=== PATIENT | female | born 1985 | race Caucasian/White ===

== ENCOUNTER 2022-06-05 11:57 | Emergency (ER) | payer OTHER ==
--- OUTSIDE RECORDS SUMMARY | 2022-06-05 12:02 | XMS REPORT | Continuity of Care Document ---
:1985 Author Organization [facility] t Address [address] [place] [address] Care Team Providers Name Role Phone LISY BLACKMON JR Primary Care Physician Unavailable CYRIL BROUSSARD Attending Clinician Unavailable TRAV GUTIERREZ Attending Clinician Unavailable Malvin JEWEL BEARING POLISHERTrav De Leon Attending Clinician Doctor Unassigned, Aripeka Attending Clinician Unavailable WESLEY BOYD Attending Clinician Unavailable Della Marquis Attending Clinician DELLA GÓMEZ Attending Clinician Unavailable KARINA DENNEY Attending Clinician Unavailable Payers Payer Name Policy Type Policy Number Effective Date Expiration Date [facility] [id number] PPO 00:00:00 [facility] [id number] 2014 00:00:00 Problems Condition Condition Condition Status Onset Resolution Last Treating Co mments Source Name Details Category Date Date Treatment Clinician Date Pyelonephr Pyelonephr Disease Active U nivers itis itis 07-12 ity of 00:00: [address] Acute Acute Disease Active Univers post-opera post-opera 9- it y of tive pain tive pain 00:00: [address] Allergies, Adverse Reactions, Alerts Allergy Allergy Status Severity Reaction(s) Onset Inactive Treating Comm ents Source Name Type Date Date Clinician Duloxeti Propensi Active Other - See Hallucin a Univers ne ty to comments 11-13 tions ity of adverse 00:00: [place] reaction 00 Medical s Branch DULOXETI DRUG Active High Other-Cmnt Univ ers NE INGREDI 11-13 ity of 00:00: [place] 00 Medical Branch Morphine Propensi Active Nausea Univer s ty to and/or 06-14 ity of adverse Vomiting 00:00: [place] reaction 00 Medical s to Branch drug Predniso Propensi Active Shortness of Univers ne ty to Breath 06-14 ity of adverse 00:00: [place] reaction Medical s to Branch drug PREDNISO DRUG Active High SOB Univers NE INGREDI 06-14 ity of 00:00: [place] 00 Medical Branch MORPHINE DRUG Active Med N/V Univers INGREDI 06-14 ity of 00:00: [place] 00 Medical Branch Social History Social Habit Start Date Stop Date Quantity Comments Source History SDOH University o f Alcohol Frequency [facility] edical Branch History SDOH University o f Alcohol Std [place] Medical Drinks Branch History SDNY University o f Alcohol Binge [place] Medic al Branch Exposure to 2022-04-16 2022-04-26 Not sure University SARS-CoV-2 00:00:00 11:31:00 [facility] (event) [place] Alcohol intake 2022-04-26 2022-04-26 Current drinker Unive rsity of 00:00:00 00:00:00 of alcohol [facility] (finding) [place] Tobacco use and 2015-06-14 2015-06-14 Smokeless tobacco Un iversity of exposure 00:00:00 00:00:00 non-user [facility] Alcohol Comment 2015-06-14 2015-06-14 Occasional Universit y of 00:00:00 00:00:00 Drinker [facility] Sex [birth year] Universit y of 00:00:00 00:00:00 [facility] Smoking Status Start Date Stop Date Source Never smoked tobacco [facility] Medications Ordered Filled Start Stop Current Ordering Indication Dosage Frequency Signature Comments Components Source Medication Medication Date Date Medication? Clinician (SIG) Name Name cefdinir 2021- Yes [id number] 600mg Take 2 U nivers 300 mg 04-26 07-25 capsules ity of capsule 00:00: 04:59 by mouth [place] 00 :00 in the Medical morning Branch for 10 days. cephALEXin 2020- No [id number] 500mg Take 1 Univers (KEFLEX) 06-28- capsule by ity of 500 mg 00:00: 04:59 mouth 2 [place] capsule 00 :00 (two) Medical times Branch daily for 10 days. COSENTYX Yes Univers PEN 150 9-08 ity of mg/mL SC 00:00: [place] injection Medical Branch COSENTYX Yes Univers PEN 150 9-08 ity of mg/mL SC 00:00: [place] injection Medical Branch COSENTYX Yes Univers PEN 150 9-08 ity of mg/mL SC 00:00: [place] injection 00 Medical Branch COSENTYX Yes Univers PEN 150 9-08 ity of mg/mL SC 00:00: [place] injection 00 Medical Branch COSENTYX Yes Univers PEN 150 9-08 ity of mg/mL SC 00:00: [place] injection 00 Medical Branch AUROVELA 24 Yes Univer s FE 1 mg-20 9-02 ity of mcg (24)/75 00:00: [place] mg (4) per 00 Medical tablet Branch AUROVEAL 24 Yes Univer s FE 1 mg-20 9-02 ity of mcg (24)/75 00:00: [place] mg (4) per 00 Medical tablet Branch AUROVEAL 24 Yes Racqueler s FE 1 mg-20 9-02 ity of mcg (24)/75 00:00: [place] mg (4) per 00 Medical tablet Branch AUROVELA 24 Yes Univer s FE 1 mg-20 9-02 ity of mcg (24)/75 00:00: [place] mg (4) per 00 Medical tablet Branch AUROVELA 24 Yes Univer s FE 1 mg-20 9-02 ity of mcg (24)/75 00:00: [place] mg (4) per 00 Medical tablet Branch atomoxetine Yes Racqu[place] s 18 mg 8-21 ity of capsule 00:00: [place] 00 Medical Branch atomoxetine 2021-0 Yes Univer s 18 mg 8-21 ity of capsule 00:00: [place] [facility] atomoxetine 2020-0 Yes Univer s 18 mg 8-21 ity of capsule 00:00: [place] [facility] atomoxetine 2020-0 Yes Univer s 18 mg 8-21 ity of capsule 00:00: [place] [address] Medical Branch atomoxetine 2020-0 Yes Univer s 18 mg 8-21 ity of capsule 00:00: [place] [facility] SERTraline 2020-0 Yes Univers 50 mg 8-10 ity of tablet 00:00: [place] [facility] traZODone 2020-0 Yes Univers 50 mg 8-10 ity of tablet 00:00: [place] [address] Medical Branch hydrOXYzine 2020-0 Yes Univer s 10 mg 8-10 ity of tablet 00:00: [place] [address] Medical Branch ARIPiprazol 2020-0 Yes Univer s e 2 mg 8-10 ity of tablet 00:00: [place] [address] Medical Branch SERTraline 2020-0 Yes Univers 50 mg 8-10 ity of tablet 00:00: [place] [facility] traZODone 2020-0 Yes Univers 50 mg 8-10 ity of tablet 00:00: [place] [address] Medical Branch hydrOXYzine 2020-0 Yes Univer s 10 mg 8-10 ity of tablet 00:00: [place] [address] Medical Branch ARIPiprazol 2020-0 Yes Univer s e 2 mg 8-10 ity of tablet 00:00: [place] [address] Medical Branch SERTraline 2020-0 Yes Univers 50 mg 8-10 ity of tablet 00:00: [place] [facility] traZODone 2020-0 Yes Univers 50 mg 8-10 ity of tablet 00:00: [place] [address] Medical Branch hydrOXYzine 2020-0 Yes Univer s 10 mg 8-10 ity of tablet 00:00: [place] [address] Medical Branch ARIPiprazol 2020-0 Yes Univer s e 2 mg 8-10 ity of tablet 00:00: [place] [address] Medical Branch SERTraline 2020-0 Yes Univers 50 mg 8-10 ity of tablet 00:00: [place] [address] Medical Branch traZODone 2020-0 Yes Univers 50 mg 8-10 ity of tablet 00:00: [place] [facility] hydrOXYzine 2021-0 Yes Univer s 10 mg 8-10 ity of tablet 00:00: Medical Branch ARIPiprazol Yes Univer s e 2 mg 8-10 ity of tablet 00:00: Medical Branch SERTraline Yes Univers 50 mg 8-10 ity of tablet 00:00: Medical Branch traZODone Yes Univers 50 mg 8-10 ity of tablet 00:00: Medical Branch hydrOXYzine Yes Univer s 10 mg 8-10 ity of tablet 00:00: Medical Branch ARIPiprazol Yes Univer s e 2 mg 8-10 ity of tablet 00:00: Medical Branch CHOLINE 2018-10 Yes 1{capsu Take 1 Cap U nivers BIT/AA10/GA 0-01 le} by mouth 3 it y of BA/HC129 16:59: (three) [place] (CHOLINE-AA 41 times Medical #10-RAY-HR daily. Branch B#129 ORAL) Indication s: OTC; pt takes 2 pills Q AM, 1 pill Q PM GIOVANA 28 ORAL 2018-10 Yes None Univer s 0-01 Entered ity of 16:59: [place] [address] Medical Branch metFORMIN 2018-10 Yes 500mg Take 500 Uni vers (GLUCOPHAGE 0-01 mg by ity of ) 500 mg 16:59: mouth 2 [place] tablet 41 (two) Medical times Branch daily. Indication s: Pt takes for PCOS spironolact 2018-10 Yes 200mg Take 200 U nivers one 0-01 mg by ity of (ALDACTONE) 16:59: mouth [place] 100 mg 41 daily. Medical tablet Branch CHOLINE 2018-10 Yes 1{capsu Take 1 Cap U nivers BIT/AA10/GA 0-01 le} by mouth 3 it y of BA/HC129 16:59: (three) [place] (CHOLINE-AA 41 times Medical #10-RAY-HR daily. Branch B#129 ORAL) Indication s: OTC; pt takes 2 pills Q AM, 1 pill Q PM GIOVANA 28 ORAL 2018-10 Yes None Univer s 0-01 Entered ity of 16:59: [place] [address] Medical Branch metFORMIN 2018-10 Yes 500mg Take 500 Uni vers (GLUCOPHAGE 0-01 mg by ity of ) 500 mg 16:59: mouth 2 [place] tablet 41 (two) Medical times Branch daily. Indication s: Pt takes for PCOS spironolact 2018-10 Yes 200mg Take 200 U nivers one 0-01 mg by ity of (ALDACTONE) 16:59: mouth [place] 100 mg 41 daily. Medical tablet Branch CHOLINE 2018-10 Yes 1{capsu Take 1 Cap U nivers BIT/AA10/GA 0-01 le} by mouth 3 it y of BA/HC129 16:59: (three) [place] (CHOLINE-AA 41 times Medical #10-RAY-HR daily. Branch B#129 ORAL) Indication s: OTC; pt takes 2 pills Q AM, 1 pill Q PM GIOVANA 28 ORAL 2018-10 Yes None Univer s 0-01 Entered ity of 16:59: [place] [address] Medical Branch metFORMIN 2018-10 Yes 500mg Take 500 Uni vers (GLUCOPHAGE 0-01 mg by ity of ) 500 mg 16:59: mouth 2 [place] tablet 41 (two) Medical times Branch daily. Indication s: Pt takes for PCOS spironolact 2018-10 Yes 200mg Take 200 U nivers one 0-01 mg by ity of (ALDACTONE) 16:59: mouth [place] 100 mg 41 daily. Medical tablet Branch CHOLINE 2018-10 Yes 1{capsu Take 1 Cap U nivers BIT/AA10/GA 0-01 le} by mouth 3 it y of BA/HC129 16:59: (three) [place] (CHOLINE-AA 41 times Medical #10-RAY-HR daily. Branch B#129 ORAL) Indication s: OTC; pt takes 2 pills Q AM, 1 pill Q PM GIOVANA 28 ORAL 2018-10 Yes None Univer s 0-01 Entered ity of 16:59: [place] [address] Medical Branch metFORMIN 2018-10 Yes 500mg Take 500 Uni vers (GLUCOPHAGE 0-01 mg by ity of ) 500 mg 16:59: mouth 2 [place] tablet 41 (two) Medical times Branch daily. Indication s: Pt takes for PCOS spironolact 2018-10 Yes 200mg Take 200 U nivers one 0-01 mg by ity of (ALDACTONE) 16:59: mouth [place] 100 mg 41 daily. Medical tablet Branch CHOLINE 2018-10 Yes 1{capsu Take 1 Cap U nivers BIT/AA10/GA 0-01 le} by mouth 3 it y of BA/HC129 16:59: (three) [place] (CHOLINE-AA 41 times Medical #10-RAY-HR daily. Branch B#129 ORAL) Indication s: OTC; pt takes 2 pills Q AM, 1 pill Q PM GIOVANA 28 ORAL 2018-10 Yes None Univer s 0-01 Entered ity of 16:59: [place] 41 Medical Branch metFORMIN 2018-10 Yes 500mg Take 500 Uni vers (GLUCOPHAGE 0-01 mg by ity of ) 500 mg 16:59: mouth 2 [place] tablet 41 (two) Medical times Branch daily. Indication s: Pt takes for PCOS spironolact 2018-10 Yes 200mg Take 200 U nivers one 0-01 mg by ity of (ALDACTONE) 16:59: mouth [place] 100 mg 41 daily. Medical tablet Branch traMADol 50 2018-10 Yes [id number] 50mg Take 1 Univers mg tablet 0-01 tablet by ity o f 00:00: mouth 2 [place] 00 (two) Medical times Branch daily as needed for Pain (scale 4-6) or Pain (scale 7-10). traMADol 50 2018-10 Yes [id number] 50mg Take 1 Univers mg tablet 0-01 tablet by ity o f 00:00: mouth 2 [place] 00 (two) Medical times Branch daily as needed for Pain (scale 4-6) or Pain (scale 7-10). traMADol 50 2018-10 Yes [id number] 50mg Take 1 Univers mg tablet 0-01 tablet by ity o f 00:00: mouth 2 [place] 00 (two) Medical times Branch daily as needed for Pain (scale 4-6) or Pain (scale 7-10). traMADol 50 2018-10 Yes [id number] 50mg Take 1 Univers mg tablet 0-01 tablet by ity o f 00:00: mouth 2 [place] 00 (two) Medical times Branch daily as needed for Pain (scale 4-6) or Pain (scale 7-10). traMADol 50 2018-10 Yes [id number] 50mg Take 1 Univers mg tablet 0-01 tablet by ity o f 00:00: mouth 2 [place] 00 (two) Medical times Branch daily as needed for Pain (scale 4-6) or Pain (scale 7-10). gabapentin Yes Univers 300 mg 9-07 ity of capsule 00:00: [place] 00 Medical Branch gabapentin Yes Univers 300 mg 9-07 ity of capsule 00:00: Medical Branch gabapentin 2019-0 Yes Univers 300 mg 9- ity of capsule 00:00: Medical Branch gabapentin 2019-0 Yes Univers 300 mg 9- ity of capsule 00:00: Medical Branch gabapentin 2019-0 Yes Univers 300 mg 9- ity of capsule 00:00: Medical Branch dicyclomine 2018-0 Yes 20mg Take 1 Univ ers (BENTYL) 20 5-23 tablet by ity of mg tablet 00:00: mouth () Medical times Branch daily as needed for Abdominal pain for up to 30 doses. ondansetron 2018-0 Yes 4mg Take 1 Univ ers (ZOFRAN 5-23 tablet by ity of ODT) 4 mg 00:00: mouth [place] disintegrat 00 every 8 Medic al ing tablet (eight) Branch hours as needed for Nausea and Vomiting (N/V). dicyclomine 2018-0 Yes 20mg Take 1 Univ ers (BENTYL) 20 5-23 tablet by ity of mg tablet 00:00: mouth () Medical times Branch daily as needed for Abdominal pain for up to 30 doses. ondansetron 2018-0 Yes 4mg Take 1 Univ ers (ZOFRAN 5-23 tablet by ity of ODT) 4 mg 00:00: mouth [place] disintegrat 00 every 8 Medic al ing tablet (eight) Branch hours as needed for Nausea and Vomiting (N/V). dicyclomine 2018-0 Yes 20mg Take 1 Univ ers (BENTYL) 20 5-23 tablet by ity of mg tablet 00:00: mouth () Medical times Branch daily as needed for Abdominal pain for up to 30 doses. ondansetron 2018-0 Yes 4mg Take 1 Univ ers (ZOFRAN 5-23 tablet by ity of ODT) 4 mg 00:00: mouth [place] disintegrat 00 every 8 Medic al ing tablet (eight) Branch hours as needed for Nausea and Vomiting (N/V). dicyclomine 2018-0 Yes 20mg Take 1 Univ ers (BENTYL) 20 5-23 tablet by ity of mg tablet 00:00: mouth () Medical times Branch daily as needed for Abdominal pain for up to 30 doses. ondansetron 2018-0 Yes 4mg Take 1 Univ ers (ZOFRAN 5-23 tablet by ity of ODT) 4 mg 00:00: mouth [place] disintegrat 00 every 8 Medic al ing tablet (eight) Branch hours as needed for Nausea and Vomiting (N/V). dicyclomine 2018-0 Yes 20mg Take 1 Univ ers (BENTYL) 20 5-23 tablet by ity of mg tablet 00:00: mouth 4 [place] 00 (four) Medical times Branch daily as needed for Abdominal pain for up to 30 doses. ondansetron 2018-0 Yes 4mg Take 1 Univ ers (ZOFRAN 5-23 tablet by ity of ODT) 4 mg 00:00: mouth [place] disintegrat 00 every 8 Medic al ing tablet (eight) Branch hours as needed for Nausea and Vomiting (N/V). methylPREDN 2018-0 Yes Take by Uni vers ISolone 4-02 mouth ity of (MEDROL, 00:00: SEE-INSTRU [place] as LATOYA,) 4 mg 00 CTIONS. Medica l tablets follow Branch package directions albuterol 2018-0 Yes 2{puff} Inhale 2 U nivers 90 4-02 Puffs ity of mcg/actuati 00:00: every 4 [place] as on inhaler 00 (four) Medical hours as Branch needed for Wheezing or Shortness of Breath. codeine-gua 2018-0 Yes 10mL Take 10 mL Univers ifenesin 4-02 by mouth ity of 10-100 mg/5 00:00: every 6 [place] as mL solution 00 (six) Medical hours as Branch needed for Cough. methylPREDN 2018-0 Yes Take by Uni vers ISolone 4-02 mouth ity of (MEDROL, 00:00: SEE-INSTRU [place] as LATOYA,) 4 mg 00 CTIONS. Medica l tablets follow Branch package directions albuterol 2018-0 Yes 2{puff} Inhale 2 U nivers 90 4-02 Puffs ity of mcg/actuati 00:00: every 4 [place] as on inhaler 00 (four) Medical hours as Branch needed for Wheezing or Shortness of Breath. codeine-gua 2018-0 Yes 10mL Take 10 mL Univers ifenesin 4-02 by mouth ity of 10-100 mg/5 00:00: every 6 [place] as mL solution 00 (six) Medical hours as Branch needed for Cough. methylPREDN 2018-0 Yes Take by Uni vers ISolone 4-02 mouth ity of (MEDROL, 00:00: SEE-INSTRU [place] as LATOYA,) 4 mg 00 CTIONS. Medica l tablets follow Branch package directions albuterol 2017-0 Yes 2{puff} Inhale 2 U nivers 90 4-02 Puffs ity of mcg/actuati 00:00: every 4 [place] on inhaler 00 (four) Medical hours as Branch needed for Wheezing or Shortness of Breath. codeine-gua 2017-0 Yes 10mL Take 10 mL Univers ifenesin 4-02 by mouth ity of 10-100 mg/5 00:00: every 6 [place] as mL solution 00 (six) Medical hours as Branch needed for Cough. methylPREDN 2017-0 Yes Take by Uni vers ISolone 4-02 mouth ity of (MEDROL, 00:00: SEE-INSTRU [place] as LATOYA,) 4 mg 00 CTIONS. Medica l tablets follow Branch package directions albuterol 0 Yes 2{puff} Inhale 2 U nivers 90 4-02 Puffs ity of mcg/actuati 00:00: every 4 [place] as on inhaler 00 (four) Medical hours as Branch needed for Wheezing or Shortness of Breath. codeine-gua Yes 10mL Take 10 mL Univers ifenesin 4-02 by mouth ity of 10-100 mg/5 00:00: every 6 [place] as mL solution 00 (six) Medical hours as Branch needed for Cough. methylPREDN 2017-0 Yes Take by Uni vers ISolone 4-02 mouth ity of (MEDROL, 00:00: SEE-INSTRU [place] LATOYA,) 4 mg 00 CTIONS. Medica l tablets follow Branch package directions albuterol 0 Yes 2{puff} Inhale 2 U nivers 90 4-02 Puffs ity of mcg/actuati 00:00: every 4 [place] on inhaler 00 (four) Medical hours as Branch needed for Wheezing or Shortness of Breath. codeine-gua 2017-0 Yes 10mL Take 10 mL Univers ifenesin 4-02 by mouth ity of 10-100 mg/5 00:00: every 6 [place] as mL solution 00 (six) Medical hours as Branch needed for Cough. norgestimat 2017-0 Yes Univer s e-ethinyl 2-01 ity of estradiol 00:00: [place] ([facility] Medical ) Branch 0.18/0.215/ 0.25 mg-35 mcg (28) tablet norgestimat Yes Univer s e-ethinyl 2-01 ity of estradiol 00:00: [place] ([facility] 00 Medical ) Branch 0.18/0.215/ 0.25 mg-35 mcg (28) tablet norgestimat Yes Univer s e-ethinyl 2-01 ity of estradiol 00:00: [place] ([facility] 00 Medical ) Branch 0.18/0.215/ 0.25 mg-35 mcg (28) tablet norgestimat Yes Univer s e-ethinyl 2-01 ity of estradiol 00:00: [place] ([facility] [address] Medical ) Branch 0.18/0.215/ 0.25 mg-35 mcg (28) tablet norgestimat Yes Univer s e-ethinyl 2-01 ity of estradiol 00:00: [place] ([facility] [address] Medical ) Branch 0.18/0.215/ 0.25 mg-35 mcg (28) tablet IBUPROFEN 2006-0 Yes 1 tab 3 Unive rs 600 MG ORAL 7-19 times a ity o f TAB 00:00: day with [place] [facility] HYDROCODONE Yes Take one Un richard -ACETAMINOP 7-19 by mouth ity of HEN 5-325 00:00: [place] 4 [place] ORAL TAB 00 6 hours as Me dical needed for Branch pain. IBUPROFEN 2006-0 Yes 1 tab 3 Unive rs 600 MG ORAL 7-19 times a ity o f TAB 00:00: day with [place] [facility] HYDROCODONE 2006- Yes Take one Un richard -ACETAMINOP 7-19 by mouth ity of HEN 5-325 00:00: [place] 4 [place] MG ORAL TAB 00 6 hours as Me dical needed for Branch pain. IBUPROFEN 2006-0 Yes 1 tab 3 Unive rs 600 MG ORAL 7-19 times a ity o f TAB 00:00: day with [place] [facility] HYDROCODONE 2006- Yes Take one Un richard -ACETAMINOP 7-19 by mouth ity of HEN 5-325 00:00: [place] 4 [place] MG ORAL TAB 00 6 hours as Me dical needed for Branch pain. IBUPROFEN 2006-0 Yes 1 tab 3 Unive rs 600 MG ORAL 7-19 times a ity o f TAB 00:00: day with [address] HYDROCODONE 2006- Yes Take one Un richard -ACETAMINOP 7-19 by mouth ity of HEN 5-325 00:00: [place] 4 [place] MG ORAL TAB 00 6 hours as Me dical needed for Branch pain. IBUPROFEN 2006-0 Yes 1 tab 3 Unive rs 600 MG ORAL 7-19 times a ity o f TAB 00:00: day with [address] HYDROCODONE 2006- Yes Take one Un richard -ACETAMINOP 7-19 by mouth ity of HEN 5-325 00:00: [place] 4 [place] MG ORAL TAB 00 6 hours as Me dical needed for Branch pain. Immunizations Ordered Filled Immunization Date Status Comments [facility] e Immunization Name Name SARS-COV-2 COVID-19 2021-01-07 Completed Unive rsity of PFIZER VACCINE 00:00:00 [facility] SARS-COV-2 COVID-19 2021-01-07 Completed Unive rsity of PFIZER VACCINE 00:00:00 [facility] SARS-COV-2 COVID-19 2021-01-07 Completed Unive rsity of PFIZER VACCINE 00:00:00 [facility] SARS-COV-2 COVID-19 2021-01-07 Completed Unive rsity of PFIZER VACCINE 00:00:00 [facility] SARS-COV-2 COVID-19 2021-01-07 Completed Unive rsity of PFIZER VACCINE 00:00:00 [facility] SARS-COV-2 COVID-19 2020-12-17 Completed Unive rsity of PFIZER VACCINE 00:00:00 [facility] SARS-COV-2 COVID-19 2020-12-17 Completed Unive rsity of PFIZER VACCINE 00:00:00 [facility] SARS-COV-2 COVID-19 2020-12-17 Completed Unive rsity of PFIZER VACCINE 00:00:00 [facility] SARS-COV-2 COVID-19 2020-12-17 Completed Unive rsity of PFIZER VACCINE 00:00:00 [facility] SARS-COV-2 COVID-19 2020-12-17 Completed Unive rsity of PFIZER VACCINE 00:00:00 [facility] Vital Signs Vital Name Observation Time Observation Value Comments Source Systolic blood 2022-04-26 16:43:00 125 mm[Hg] Univer sity of pressure [facility] Diastolic blood 2022-04-26 16:43:00 84 mm[Hg] Unive rsity of pressure [facility] Heart rate 2022-04-26 16:43:00 93 /min Universi ty of [facility] Body temperature 2022-04-26 16:43:00 36.39 [place]ivid[place] Univ ersity of [facility] Respiratory rate 2022-04-26 16:43:00 17 /min Univ ersity of [facility] Body height 2022-04-26 16:43:00 160 cm Universi ty of [facility] Body weight 2022-04-26 16:43:00 117.346 kg Universi ty of [facility] BMI 2022-04-26 16:43:00 45.83 kg/m2 Universi ty of [place] [facility] Oxygen saturation in 2022-04-26 16:43:00 98 /min University of Arterial blood by [facility] Pulse oximetry Branch Systolic blood 2021-08-31 18:17:00 120 mm[Hg] Univer sity of pressure [facility] Diastolic blood 2021-08-31 18:17:00 76 mm[Hg] Unive rsity of pressure [facility] Heart rate 2021-08-31 18:17:00 81 /min Universi ty of [facility] Body temperature 2021-08-31 18:17:00 36.94 Natividad Univ ersity of [facility] Branch Respiratory rate 2021-08-31 18:17:00 18 /min Univ ersity of [facility] Body height 2021-08-31 18:17:00 160 cm Universi ty of [place] [facility] Body weight 2021-08-31 18:17:00 117.935 kg Universi ty of [place] [facility] BMI 2021-08-31 18:17:00 46.06 kg/m2 Universi ty of [facility] Branch Oxygen saturation in 2021-08-31 18:17:00 98 /min University of Arterial blood by [facility] Pulse oximetry Branch Systolic blood 2021-06-28 23:17:00 128 mm[Hg] Univer sity of pressure [facility] Diastolic blood 2021-06-28 23:17:00 89 mm[Hg] Unive rsity of pressure [facility] Heart rate 2021-06-28 23:17:00 101 /min [facility] Body temperature 2021-06-28 23:17:00 36.28 Natividad [facility] 2021-06-28 23:17:00 18 /min [facility] Body height 2021-06-28 23:17:00 160 cm [facility] Body weight 2021-06-28 23:17:00 113.399 kg [facility] BMI 2021-06-28 23:17:00 44.29 kg/m2 [facility] Oxygen saturation in 2021-06-28 23:17:00 97 /min [facility] blood by [facility] Pulse oximetry [place] Procedures Procedure Date / Time Performed Performing Clinician Karen e POCT TEST 2022-04-26 16:46:00 Trav Gutierrez [facility] POCT URINALYSIS 2022-04-26 16:45:00 Trav Gutierrez o [facility] ASSIGNMENT OF BENEFITS 2022-04-26 16:33:02 Doctor Unassigned, No [facility] POCT TEST 2021-06-29 00:05:00 Trav Gutierrez [facility] POCT URINALYSIS 2021-06-28 23:27:00 Trav Gutierrez [facility] Encounters Start End Encounter Admission Attending Care Care Encounter Source Date/Time Date/Time Type Type Clinicians Facility Department ID 2022-06-06 2022-06-06 Outpatient Anselmo BROUSSARD [facility] [id number] [id number] Univers 08:30:00 08:30:00 CYRIL [id number] [facility] 2022-06-06 2022-06-06 Outpatient Anselmo BROUSSARD [facility] [id number] Univers 08:30:00 08:30:00 CYRIL [facility] 2022-04-26 2022-04-26 Outpatient R MALVIN [facility] [id number] Univers 11:40:00 11:49:19 TRAV ity [facility] 2022-04-26 2022-04-26 Urgent Malvin [facility] [id number] Univers 11:40:00 11:49:19 Care [facility] [id number] it y of [place] [id number] Yogi as YOHAN?BLEA [phone] [address] MEDICAL OFFICE BUILDING 2022-04-26 2022-04-26 Outpatient R [facility] [id number] Univers 11:40:00 11:40:00 [id number] ity [facility] 2022-04-26 2022-04-26 Orders Doctor AMAN [id number] Univers 00:00:00 00:00:00 Only Unassigned, LINDEN [id number] ity of [facility] [id number] Yogi as [phone] [address] 2021-11-24 2021-11-24 Outpatient R ARIELLEMELISASELENA [facility] [id number] Univers 00:00:00 00:00:00 WESLEY [id number] ity [facility] 2021-08-31 2021-08-31 Outpatient R [facility] [id number] Univers 12:40:00 12:40:00 [id number] ity [facility] 2021-08-31 2021-08-31 Outpatient R MALVIN [facility] [id number] Univers 12:40:00 12:40:00 TRAV itgianfranco [facility] 2021-08-31 2021-08-31 Urgent Trav Gutierrez [facility] [id number] Univers 12:13:13 12:33:13 Care [place] [facility] [id number] ity of [place] [id number] Yogi as YOHAN?BLEA [id number] [address] MEDICAL OFFICE BUILDING 2021-08-31 2021-08-31 Letter Ebrahim, [facility] [id number] Univers 00:00:00 00:00:00 (Out) JeanCellvine [id number] it y of [place] [id number] Yogi as YOHAN?BLEA [id number] [address] MEDICAL OFFICE [facility] 2021-06-28 2021-06-28 Urgent Trav Gutierrez [facility] [id number] Univers 17:50:55 19:09:38 Della العلي [facility] [id number] ity of [place] [id number] Yogi as Yohan?Blea [phone] [address] Medical Office [facility] 2021-06-28 2021-06-28 Outpatient [facility] [id number] Univers 17:40:00 17:40:00 [id number] [facility] 2021-06-28 2021-06-28 [facility] [id number] Univers 17:40:00 17:40:00 DELLA [facility] 2021-06-28 2021-06-28 [facility] [id number] Univers 17:40:00 17:40:00 DELLA [facility] 2021-01-07 2021-01-07 Outpatient Anselmo DENNEY [facility] [id number] Univers 12:30:00 12:30:00 KARINA [facility] 2020-12-17 2020-12-17 Outpatient [facility] [id number] Univers 12:30:00 12:30:00 [id number] [facility] 2020-12-17 2020-12-17 [facility] [id number] Univers 12:30:00 12:30:00 [facility] Results Test Description Test Time Test Comments Results Result Comments Source POCT TEST 2022-04-26 16:50:00 Test Item Value Reference Range Interpretation Comme nts POCT PREG (test code = 1605) Negative On board controls acceptable with C Line (test code = 3574) No POCT PREG LOT # (test code = 3575) POCT PREG TEST DATE (test code = 3576) Lab Interpretation (test code = 45986-5) Normal [facility] URINALYSIS W SPECIFIC [id number] 16:46:00 Test Item Value Reference Range Interpretation Comments POCT U SP GRAV (test code = 1.015 mg/dl 1.005-1.025 3255) POCT PH U (test code = 3254) 6 mg/dl 5-8 POCT U LEUK EST (test code = ++ Negative - Negative 3263) POCT U NIT (test code = 3262) + Negative - Negative POCT U PROT (test code = trace Negative - Negative 3259) POCT U GLU (test code = 3256) norm Negative - Negative POCT U KETONE (test code = neg Negative - Negative 3258) POCT U UROBILI (test code = norm 0.2-1 3260) POCT U BILI (test code = neg Negative - Negative 3261) POCT U BLD (test code = 3257) Negative - Negative POCT U COLOR (test code = dark 3266) POCT U APPEAR (test code = cloudy 3267) Lab Interpretation (test code Abnormal = 17176-2) [facility] [id number] 00:09:00 Test Item Value Reference Range Interpretation Comments POCT PREG (test code = 1605) Negative On board controls acceptable with C Yes Line (test code = 3574) POCT PREG LOT # (test code = 3575) POCT PREG TEST DATE (test code = 3576) [facility] URINALYSIS W SPECIFIC [id number] 23:28:00 Test Item Value Reference Range Interpretation Comments POCT U SP GRAV (test code = 1.010 mg/dl 1.005-1.025 3255) POCT PH U (test code = 3254) 5 mg/dl 5-8 POCT U LEUK EST (test code = negative Negative - Negative 3263) POCT U NIT (test code = 3262) negative Negative - Negative POCT U PROT (test code = negative Negative - Negative 3259) POCT U GLU (test code = 3256) negative Negative - Negative POCT U KETONE (test code = negative Negative - Negative 3258) POCT U UROBILI (test code = 0.2 mg/dl 0.2-1 3260) POCT U BILI (test code = negative Negative - Negative 326) POCT U BLD (test code = 3257) negative Negative - Negative POCT U COLOR (test code = yellow 3266) POCT U APPEAR (test code = clear 3267) [facility]
[2022-06-05 13:26] LABS: Urine Blood Negative (Negative); Urine Glucose Negative (Negative); Urine Protein Negative (Negative)
[2022-06-05 13:37] LABS: Absolute Lymphocytes (CBC) 3.5 K/uL (0.7-4.9); MCV 79.8 fL (80-100); MPV 8.9 fL (7.6-11.3); RBC Red Blood Cell Count 5.14 M/uL (3.86-4.86)
[2022-06-05 13:54] LABS: Albumin 3.7 g/dL (3.4-5.0); Bilirubin Total 0.2 mg/dL (0.2-1.0); Potassium 3.8 mmol/L (3.5-5.1); Protein, Total 7.7 g/dL (6.4-8.2)
--- NOTE | 2022-06-05 14:45 | RAD REPORT ---
EXAM DESCRIPTION: CTAbdomen Pelvis W Contrast - 06/05/2022 2:28 pm CLINICAL HISTORY: Abdominal pain. right lower abdominal pain COMPARISON: Pelvis Complete dated 01/14/2017 TECHNIQUE: Biphasic CT imaging of the abdomen and pelvis was performed with 100 ml non-ionic IV cont rast. All CT scans are performed using dose optimization technique as appropriate and may include automated exposure control or mA/KV adjustment according to patient size. FINDINGS: The lung bases are clear. The liver, spleen, pancreas, adrenal glands and kidneys are within normal limits. Cholecystectomy. No bowel obstruction, free air, free fluid or abscess. The appendix is normal. No evidence of signi ficant lymphadenopathy. No suspicious bony findings. IUD is noted in the uterus. IMPRESSION: No acute intra-abdominal or pelvic finding.
[2022-06-05] MEDS ORDERED: FENTANYL CITR 100 MCG/2 ML ONE (14:51)
[2022-06-05] MEDS ORDERED: ONDANSETRON 4 MG/2 ML VIAL ONE (14:51)
--- NOTE | 2022-06-05 15:37 | RAD REPORT ---
EXAM DESCRIPTION: US - Transvaginal Study Probe - 06/05/2022 3:27 pm CLINICAL HISTORY: right lower abdominal pain Pelvic pain. COMPARISON: Transvaginal Study Probe dated 11/21/2021 FINDINGS: The uterus is normal in size, shape and echotexture. The uterus measures 8.1 x 3.7 cm. IUD is appropriately positioned in the fundal endometrium. Both ovaries are normal in size, shape and echotexture. The right ovary measures 2.4 x 1.9 x 1.8 cm. The left ovary measures 2.7 x 1.3 x 1.3 cm. No ovarian or parovarian lesions. No adnexal masses. Normal Doppler blood flow was demonstrated to both ovaries. No significant pelvic ascites. IMPRESSION: Unremarkable study. Appropriately placed IUD.
--- NOTE | 2022-06-05 16:12 | ER ---
Nurse's Notes [facility] Name: Judy Alvarez Age: 36 yrs Sex: Female : 1985 Arrival Date: 06/05/2022 Time: 11:59 Bed 28 Private MD: Bernard Worley Diagnosis: Pelvic and perineal pain Presentation: 06/05 12:03 Chief complaint: Patient states: went to OBGYN for pain in RLQ and wraps to back. Has jh5 been on levoquin and flagyl; pt states dr office did blood work and EBC was within normal range. Pt has a HX of torsion to the right side in 2011 where the pain is now; SX to remove cyst that was "torsioning". Coronavirus screen: Vaccine status: Patient reports receiving the 2nd dose of the covid vaccine. Client denies travel out of the [place] in the last 14 days. Ebola Screen: Patient negative for fever greater than or equal to 101.5 degrees Fahrenheit, and additional compatible Ebola Virus Disease symptoms Patient denies exposure to infectious person. Patient denies travel to an Ebola-affected area in the 21 days before illness onset. Initial Sepsis Screen: Does the patient meet any 2 criteria? No. Patient's initial sepsis screen is negative. Does the patient have a suspected source of infection? No. Patient's initial sepsis screen is negative. Risk Assessment: Do you want to hurt yourself or someone else? Patient reports no desire to harm self or others. 12:03 Method Of Arrival: Ambulatory [facility] 12:03 Acuity: LIDIA 3 5 Triage Assessment: 12:09 General: Appears uncomfortable, obese, Behavior is calm, cooperative, appropriate for [facility] age, anxious. Pain: Complains of pain in abdomen. 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 - Social history:: Smoking status: Patient denies any tobacco usage or history of. Screenin:11 Abuse screen: Denies threats or abuse. Denies injuries from another. Nutritional [facility] screening: No deficits noted. Tuberculosis screening: No symptoms or risk factors identified. Fall Risk None identified. Assessment: 13:33 General: Appears in no apparent distress. uncomfortable, Behavior is calm, cooperative, jl7 appropriate for age. Pain: Complains of pain in right lower quadrant Pain radiates to right low back Pain currently is 10 out of 10 on a pain scale. Quality of pain is described as aching, Pain began x 3 weeks Is continuous. Neuro: Level of Consciousness is awake, alert, obeys commands, Oriented to person, place, time, situation. Cardiovascular: Patient's skin is warm and dry. Respiratory: Airway is patent Respiratory effort is even, unlabored, Respiratory pattern is regular, symmetrical. : Denies burning with urination. Derm: Skin is pink, warm \\T\\ dry. 14:30 Reassessment: Patient appears in no apparent distress at this time. No changes from jl7 previously documented assessment. Patient and/or family updated on plan of care and expected duration. Pain level reassessed. Patient is alert, oriented x 3, equal unlabored respirations, skin warm/dry/pink. 15:30 Reassessment: Patient appears in no apparent distress at this time. No changes from jl7 previously documented assessment. Patient and/or family updated on plan of care and expected duration. Pain level reassessed. Patient is alert, oriented x 3, equal unlabored respirations, skin warm/dry/pink. Vital Signs: 12:03 BP 137 / 87; Pulse 110; Resp 18; Temp 97.7; Pulse Ox 100% ; Weight 117.03 kg; Height 5 5 ft. 3 in. (160.02 cm); Pain 10/10; 13:34 BP 120 / 75; Pulse 98; Resp 15; Pulse Ox 100% ; jl7 16:00 BP 117 / 82; Pulse 88; Resp 15; Pulse Ox 100% ; jl7 12:03 Body Mass Index 45.70 (117.03 kg, 160.02 cm) [facility] ED Course: 11:59 Patient arrived in ED. 4 11:59 Bernard Worley MD is Private Physician. [facility] 12:01 [facility] 12:01 Nickolas Wallace MD is Attending Physician. [facility] 12:09 Triage completed. 5 12:09 Arm band placed on left wrist. [facility] 12:11 Patient has correct armband on for positive identification. jh5 12:11 No provider procedures requiring assistance completed. 5 13:21 Cassandra Fitch, RN is Primary Nurse. jl7 13:25 Lipase Sent. mb7 13:25 CMP Sent. mb7 13:25 CBC with Diff Sent. mb7 13:32 Missed attempt(s): 20 gauge in left antecubital area. Bleeding controlled, band aid mb7 applied, catheter tip intact. 13:32 Urine Dipstick-Ancillary Sent. mb7 13:32 Urine --Ancillary (enter results) Sent. mb7 13:33 Pulse ox on. NIBP on. jl7 13:33 Initial lab(s) drawn, by ED staff, sent to lab. Urine collected: clean catch specimen. jl7 Inserted saline lock: 20 gauge in right antecubital area, using aseptic technique. 14:31 CT Abd/Pelvis - IV Contrast Only In Process Unspecified. EDMS 15:29 Transvaginal Study Probe In Process Unspecified. EDMS 16:46 IV discontinued, intact, bleeding controlled, No redness/swelling at site. Pressure jl7 dressing applied. Administered Medications: 14:45 Drug: fentaNYL (PF) 50 mcg Route: IVP; Site: right antecubital; jl7 16:45 Follow up: Response: No adverse reaction jl7 14:45 Drug: Zofran (Ondansetron) 4 mg Route: IVP; Site: right antecubital; jl7 16:45 Follow up: Response: No adverse reaction jl7 16:45 Not Given (Physician Discretion): Ketorolac 30 mg IVP once jl7 Medication: 13:33 VIS not applicable for this client. jl7 Outcome: 16:11 Discharge ordered by . katie 16:46 Discharged to home ambulatory, with family. jl7 16:46 Condition: stable 16:46 Discharge instructions given to patient, family, Instructed on discharge instructions, follow up and referral plans. Demonstrated understanding of instructions, follow-up care, medications, Prescriptions given X 2. 16:47 Patient left the ED. jl7 Signatures: Dispatcher [employer] EDMS Hector Ochoa PA PA jmm Garcia, Rubi rg4 Cassandra Fitch, RN RN jl7 Cele Grigsby RN RN 5 Alesia Patel 7
--- NOTE | 2022-06-05 16:13 | EDPHYS ---
Physician Documentation [facility] Name: Judy Alvarez Age: 36 yrs Sex: Female : 1985 Arrival Date: 06/05/2022 Time: 11:59 Bed 28 Private MD: Bernard Worley ED Physician Nickolas Wallace HPI: 06/05 12:14 This 36 yrs old Female presents to ER via Ambulatory with complaints of Flank Pain, Low jmm Back Pain. 12:14 The patient complains of pain in the right flank. Onset: The symptoms/episode jmm began/occurred gradually. Modifying factors: The symptoms are alleviated by nothing. the symptoms are aggravated by nothing. Associated signs and symptoms: Pertinent negatives: dysuria, fever. It is unknown whether or not the patient has had similar symptoms in the past. 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 - Social history:: Smoking status: Patient denies any tobacco usage or history of. ROS: 12:14 Constitutional: Negative for fever, chills, and weight loss, Cardiovascular: Negative jmm for chest pain, palpitations, and edema, Respiratory: Negative for shortness of breath, cough, wheezing, and pleuritic chest pain, Abdomen/GI: Negative for abdominal pain, nausea, vomiting, diarrhea, and constipation. 12:14 : Negative for vaginal bleeding. 12:14 All other systems are negative. Exam: 12:14 Constitutional: This is a well developed, well nourished patient who is awake, alert, jmm and in no acute distress. Head/Face: atraumatic. Eyes: EOMI, no conjunctival erythema appreciated ENT: Moist Mucus Membranes Neck: Trachea midline, Supple Chest/axilla: Normal chest wall appearance and motion. Cardiovascular: Regular rate and rhythm. No edema appreciated Respiratory: Normal respirations, no respiratory distress appreciated Abdomen/GI: Non distended 12:14 Skin: General appearance color normal MS/ Extremity: Moves all extremities, no jmm obvious deformities appreciated, no edema noted to the lower extremities 12:14 Neuro: Awake and alert Psych: Behavior is normal, Mood is normal, Patient is cooperative and pleasant 12:14 Abdomen/GI: Inspection: abdomen appears normal, Bowel sounds: normal, Palpation: soft, mild abdominal tenderness, in the suprapubic area and right lower quadrant. 12:14 Back: pain, that is mild, of the right low back. Vital Signs: 12:03 BP 137 / 87; Pulse 110; Resp 18; Temp 97.7; Pulse Ox 100% ; Weight 117.03 kg; Height 5 5 ft. 3 in. (160.02 cm); Pain 10/10; 13:34 BP 120 / 75; Pulse 98; Resp 15; Pulse Ox 100% ; jl7 16:00 BP 117 / 82; Pulse 88; Resp 15; Pulse Ox 100% ; jl7 12:03 Body Mass Index 45.70 (117.03 kg, 160.02 cm) 5 MDM: 12:14 Patient medically screened. [facility] 16:07 Data reviewed: vital signs, nurses notes. Counseling: I had a detailed discussion with [facility] the patient and/or guardian regarding: the historical points, exam findings, and any diagnostic results supporting the discharge/admit diagnosis, lab results, radiology results, the need for outpatient follow up, to return to the emergency department if symptoms worsen or persist or if there are any questions or concerns that arise at home. 16:08 ED course: Pain is relieved in the ED. Imaging studies negative. patient advised to [facility] follow up with pcp and otherwise given strict return precautions. patient understood and agrees with the plan of care. . 06/05 12:16 Order name: CBC with Diff; Complete Time: 13:41 [facility] 06/05 12:16 Order name: CMP; Complete Time: 13:55 [facility] 06/05 12:16 Order name: Lipase; Complete Time: 13:55 [facility] 06/05 12:16 Order name: CT Abd/Pelvis - IV Contrast Only; Complete Time: 14:53 [facility] 06/05 13:28 Order name: Urine Dipstick-Ancillary [facility] 06/05 13:30 Order name: Urine --Ancillary (enter results); Complete Time: 13:57 06/05 12:16 Order name: IV Saline Lock; Complete Time: 13:49 [facility] 06/05 12:16 Order name: Labs collected and sent; Complete Time: 13:22 [facility] 06/05 12:16 Order name: Urine Dipstick-Ancillary (obtain specimen); Complete Time: 13:22 [facility] 06/05 15:10 Order name: Transvaginal Study Probe; Complete Time: 15:38 ED[facility] 06/05 12:16 Order name: Urine Test (obtain specimen); Complete Time: 13:22 [facility] Administered Medications: 14:45 Drug: fentaNYL (PF) 50 mcg Route: IVP; Site: right antecubital; jl7 16:45 Follow up: Response: No adverse reaction jl7 14:45 Drug: Zofran (Ondansetron) 4 mg Route: IVP; Site: right antecubital; jl7 16:45 Follow up: Response: No adverse reaction jl7 16:45 Not Given (Physician Discretion): Ketorolac 30 mg IVP once jl7 Disposition: 06/06 10:28 Co-signature as Attending Physician, Nickolas Wallace MD I agree with the assessment and kdr plan of care. Disposition Summary: 06/05/22 16:11 Discharge Ordered Location: Home [facility] Condition: Stable [facility] Diagnosis - Pelvic and perineal pain [facility] Followup: [facility] - With: Private Physician - When: 2 - 3 days - Reason: Recheck today's complaints, Continuance of care, Re-evaluation by your physician Discharge Instructions: - Discharge Summary Sheet [facility] - Pelvic Pain, Female [facility] Forms: - Medication Reconciliation Form [facility] - Thank You Letter [facility] - Antibiotic Education [facility] - Prescription Opioid Use [facility] Prescriptions: - Diclofenac Sodium 75 mg Oral Tablet Sustained Release - take 1 tablet by ORAL route 2 times per day; 30 tablet; Refills: 0, Product [facility] Selection Permitted - orphenadrine citrate 100 mg Oral Tablet Sustained Release - take 1 tablet by ORAL route 2 times per day As needed; 20 tablet; Refills: 0, [facility] Product Selection Permitted Signatures: Dispatcher [employer] EDKS Nickolas Wallace MD MD kdr Mickail, Joel, PA PA jm Cassandra Fitch RN RN jl7 Cele Grigsby RN RN jh5 Corrections: (The following items were deleted from the chart) 06/05 15:10 14:55 Pelvis Complete+US.RAD.BRZ ordered. EDKS EDMS
[2022-06-05] MEDS ORDERED: KETOROLAC 30 MG/ML INJ ONE (16:48)
[2022-06-05 17:17] VITALS: TEMP 97.7; O2SAT 100
[2022-06-05 17:32] VITALS: BP 117/82
== END 2022-06-05 16:47 | disposition home or self-care (01) ==
LOC: ER 11:57
DX: R10.2 Pelvic and perineal pain (principal); M54.50 Low back pain, unspecified; R11.0 Nausea; Z88.5 Allergy status to narcotic agent; Z88.8 Allergy status to other drugs, medicaments and biological substances
CPT/HCPCS: 85025; 36415; 81025; 81003; 83690; 80053; 74177; 76830; Q9967; J3010; J2405